=== PATIENT | male | born 1990 | race African-American/Black ===

== ENCOUNTER 2017-11-21 15:54 | Emergency (ER) | payer SELFPAY ==
[2017-11-21] MEDS ORDERED: Ondansetron ODT 4 MG TAB ONE ×2 (17:21)
== END 2017-11-21 18:09 | disposition home or self-care (01) ==
LOC: ERS 15:54
DX: F19.10 Other psychoactive substance abuse, uncomplicated (principal); F17.210 Nicotine dependence, cigarettes, uncomplicated
CPT/HCPCS: 36416; 99406; Q0162

== ENCOUNTER 2022-04-14 17:57 | Emergency (ER) | payer SELFPAY | END 2022-04-14 20:37 | LOC: EEVIPCON 17:57 → ERS 17:57 | DX: F16.129 Hallucinogen abuse with intoxication, unspecified (principal) | CPT/HCPCS: 99282 ==